=== PATIENT | male | born 1965 | race Caucasian/White ===

== ENCOUNTER 2021-07-10 18:55 | Emergency (ER) | payer OTHER ==
[~2021-07-10] VITALS: Ht 177.8 cm; Wt 81.2 kg
[2021-07-10 19:16] VITALS: BP 162/80
[2021-07-10] MEDS ORDERED: TDAP [DIPH/PERTUSSIS/TET] 0.5 ML VIAL IM ONE (19:22)
[2021-07-10] MEDS: TDAP [DIPH/PERTUSSIS/TET] 0.5 ML VIAL IM ONE (19:26)
[2021-07-10] MEDS ORDERED: LIDOCAINE 1%-EPI 1:100,000 20 ML VIAL ONE (19:47)
[2021-07-10] MEDS ORDERED: GELATIN SPONGE,ABSORBABLE 1 SPONGE SPONGE TP ONE (19:51)
[2021-07-10] MEDS ORDERED: LIDOCAINE 0.5%-EPI 1:200,000 50 ML VIAL TP ONE (20:00)
[2021-07-10] MEDS: LIDOCAINE 1%-EPI 1:100,000 20 ML VIAL TP ONE (20:00)
[2021-07-10] MEDS ORDERED: BACITRACIN ZINC OINT PACKET 1 EA PACKET TP ONE (20:01)
[2021-07-10] MEDS: BACITRACIN ZINC OINT PACKET 1 EA PACKET TP ONE (20:01)
[2021-07-10] MEDS ORDERED: IBUP-1955 PO (20:14)
== END 2021-07-10 20:19 | disposition home or self-care (01) ==
LOC: ER 18:59
DX: S61.302A Unspecified open wound of right middle finger with damage to nail, initial encounter (principal); I10 Essential (primary) hypertension; F41.9 Anxiety disorder, unspecified; W26.8XXA Contact with other sharp object(s), not elsewhere classified, initial encounter; Y93.89 Activity, other specified; Y92.89 Other specified places as the place of occurrence of the external cause; Y99.8 Other external cause status
CPT/HCPCS: 64450; 90471; 90715; 99284; J3490

== ENCOUNTER 2023-03-04 09:00 | Emergency (ER) | payer BC, OTHER ==
[~2023-03-04] VITALS: Ht 177.8 cm; Wt 83.9 kg
[~2023-03-04 09:00] MED LIST: IBUP-1955 PO
[2023-03-04] MEDS ORDERED: NAPR-1009 PO ×2 (09:24→09:38)
[2023-03-04] MEDS ORDERED: ALPR0.25 PO (09:38)
[2023-03-04 09:47] VITALS: BP 164/96; TEMP 98.1; O2SAT 98
== END 2023-03-04 09:47 | disposition home or self-care (01) ==
LOC: ER 09:05
DX: S29.012A Strain of muscle and tendon of back wall of thorax, initial encounter (principal); I10 Essential (primary) hypertension; F41.9 Anxiety disorder, unspecified; Z98.890 Other specified postprocedural states; Z79.899 Other long term (current) drug therapy; W17.89XA Other fall from one level to another, initial encounter; Y93.89 Activity, other specified; Y92.34 Swimming pool (public) as the place of occurrence of the external cause; Y99.8 Other external cause status
CPT/HCPCS: 71045-TC

== ENCOUNTER 2024-01-05 07:18 | Inpatient (IN) | payer BC, OTHER ==
[~2024-01-05] VITALS: Ht 177.8 cm; Wt 82.6 kg
[~2024-01-05 07:18] MED LIST changes: +ALPR0.25 PO; +NAPR-1009 PO
[2024-01-05] MEDS ORDERED: ASPIRIN 81 MG TAB.CHEW ONE (08:04)
[2024-01-05] MEDS: ASPIRIN 81 MG TAB.CHEW PO ONE (08:05)
[2024-01-05 08:38] LABS: BASOPHILS % (AUTO) 0.3 % (0.0-2.0); EOSINOPHILS # (AUTO) 0.1 K/uL (0.0-0.7); EOSINOPHILS % (AUTO) 1.3 % (0.0-6.0); HEMATOCRIT 40 % (39-51); LYMPHOCYTES % (AUTO) 17.2 % (20.0-44.0); MEAN CORPUSCULAR HEMOGLOBIN 31 PG (26.0-33.0); MEAN CORPUSCULAR HGB CONC 35 g/dl (31.0-36.0); MEAN CORPUSCULAR VOLUME 87 fL (80-96); MONOCYTES # (AUTO) 0.4 K/uL (0.1-1.30); MONOCYTES % (AUTO) 7.9 % (2.0-12.0); NEUTROPHILS # (AUTO) 4.1 K/uL (1.8-8.9); NEUTROPHILS % (AUTO) 73.3 % (43.0-81.0); PLATELET COUNT (AUTO) 195 K/uL (150-450); RED BLOOD CELL COUNT(AUTO) 4.54 MIL/uL (4.5-6.0); RED CELL DISTRIBUTION WIDTH 12.1 % (11.5-15.0); WHITE BLOOD COUNT (AUTO) 5.5 K/uL (4.3-11.0)
[2024-01-05 08:49] LABS: CALCIUM, SERUM 8.5 mg/dL (8.5-10.1); CARBON DIOXIDE 29 mmol/L (21-32); CHLORIDE 102 mmol/L (98-107); GLUCOSE 104 mg/dL (74-106); POTASSIUM 3.8 mmol/L (3.5-5.1); SODIUM SERUM 138 mmol/L (136-145); UREA NITROGEN, BLOOD 20 mg/dL (7-18)
[2024-01-05] MEDS ORDERED: NITROGLYCERIN PACKET 1 GM PACKET ONE (10:08)
[2024-01-05] MEDS: NITROGLYCERIN PACKET 1 GM PACKET TD ONE (10:13)
[2024-01-05] MEDS ORDERED: FLUT16SP16 NS (10:22)
[2024-01-05] MEDS ORDERED: AMLO-213 PO (10:22)
[2024-01-05] MEDS ORDERED: LISI-768 PO (10:22)
[2024-01-05] MEDS ORDERED: ACET-637 PO (10:22)
[2024-01-05] MEDS ORDERED: ROSU5TAB PO (10:22)
[2024-01-05] MEDS ORDERED: BUPR75TA8 PO (10:22)
[2024-01-05] MEDS ORDERED: METO-357 PO (10:22)
[2024-01-05] MEDS ORDERED: Z GUARD REMEDY 4 OZ OINT TP PRN (12:30)
[2024-01-05] MEDS ORDERED: ONDANSETRON HCL/PF 4 MG/2 ML VIAL IVP PRN (12:30)
[2024-01-05] MEDS ORDERED: ALPRAZOLAM 0.25 MG TABLET PO PRN (12:30)
[2024-01-05] MEDS ORDERED: MAGNESIUM HYDROXIDE 30 ML UDC PO PRN (12:30)
[2024-01-05] MEDS ORDERED: NITROGLYCERIN 0.4 MG/TAB BOTTLE SL PRN (12:30)
[2024-01-05] MEDS ORDERED: MAG HYDROX/AL HYDROX/SIMETH 30 ML UDC PO PRN (12:30)
[2024-01-05] MEDS ORDERED: ZOLPIDEM TARTRATE 5 MG TABLET PO PRN (12:30)
[2024-01-05] MEDS: HYDROCODONE/APAP 5/325MG TABLET PO PRN (14:15)
[2024-01-05] MEDS: ASPIRIN 81 MG TAB.CHEW PO SCH (15:18)
[2024-01-05 16:00] VITALS: BP 141/89; TEMP 97.5; O2SAT 96
[2024-01-05] MEDS: ACETAMINOPHEN 325 MG TABLET PO PRN (16:46)
[2024-01-05] MEDS: LISINOPRIL (5MG) 5 MG TABLET PO SCH (18:09)
[2024-01-05] MEDS: buPROPion 75 MG TABLET PO SCH (18:09)
[2024-01-05] MEDS: METOPROLOL SUCCINATE 50 MG TAB.SR.24H PO SCH (18:10)
[2024-01-05] MEDS: AMLODIPINE BESYLATE 10 MG TABLET PO SCH (18:11)
[2024-01-05 18:23] LABS: MAGNESIUM 2.3 mg/dL (1.8-2.4)
[2024-01-05 20:00] VITALS: BP 132/83; TEMP 98.1; O2SAT 96
[2024-01-05 20:38] VITALS: BP 132/83; TEMP 98.1; O2SAT 96
[2024-01-06] VITALS (7 sets, daily range): BP systolic 130–154; BP diastolic 83–95; TEMP 97.7–98.2; O2SAT 96–98
[2024-01-06 07:25] LABS: BASOPHILS % (AUTO) 0.3 % (0.0-2.0); EOSINOPHILS # (AUTO) 0.1 K/uL (0.0-0.7); EOSINOPHILS % (AUTO) 1.3 % (0.0-6.0); HEMATOCRIT 40 % (39-51); LYMPHOCYTES # (AUTO) 1.6 K/uL (0.8-4.8); LYMPHOCYTES % (AUTO) 18.1 % (20.0-44.0); MEAN CORPUSCULAR HEMOGLOBIN 31 PG (26.0-33.0); MEAN CORPUSCULAR HGB CONC 35 g/dl (31.0-36.0); MEAN CORPUSCULAR VOLUME 88 fL (80-96); MONOCYTES # (AUTO) 0.7 K/uL (0.1-1.30); MONOCYTES % (AUTO) 8.4 % (2.0-12.0); NEUTROPHILS # (AUTO) 6.3 K/uL (1.8-8.9); NEUTROPHILS % (AUTO) 71.9 % (43.0-81.0); PLATELET COUNT (AUTO) 198 K/uL (150-450); RED BLOOD CELL COUNT(AUTO) 4.53 MIL/uL (4.5-6.0); RED CELL DISTRIBUTION WIDTH 12.2 % (11.5-15.0); WHITE BLOOD COUNT (AUTO) 8.7 K/uL (4.3-11.0)
[2024-01-06 07:45] LABS: CALCIUM, SERUM 8.9 mg/dL (8.5-10.1); CREATININE 1.1 mg/dL (0.6-1.3); MAGNESIUM 2.4 mg/dL (1.8-2.4); PHOSPHORUS 3.4 mg/dL (2.5-4.9); POTASSIUM 3.9 mmol/L (3.5-5.1)
[2024-01-06] MEDS ORDERED: HYDROCODONE BIT/HOMATROPINE 5 ML UDC PO PRN (08:00)
[2024-01-06 08:01] LABS: THYROID STIMULATING HORMONE 1.326 uIU/mL (0.358-3.74)
[2024-01-06] MEDS: PANTOPRAZOLE 40 MG TABLET.DR PO SCH (08:14)
[2024-01-06] MEDS: ATORVASTATIN 10 MG TABLET PO SCH (08:16)
[2024-01-06] MEDS: FLUTICASONE PROPIONATE 16 GM BOTTLE NS SCH (08:25)
[2024-01-06] MEDS ORDERED: GUAIFENESIN 300 MG/15 ML UDC PO PRN (09:00)
[2024-01-06] MEDS ORDERED: ALPRAZOLAM 0.5 MG TABLET PO PRN (10:00)
[2024-01-06] MEDS ORDERED: ALPR0.5T PO (18:53)
[2024-01-06] MEDS ORDERED: HYDR-3972 PO (18:53)
[2024-01-06] MEDS ORDERED: ONDA4TAB5 PO (18:53)
== END 2024-01-06 19:00 | disposition home or self-care (01) | DRG 206 ==
LOC: ER 07:18 → TELE1 11:23
PROVIDERS: ADMIT Nurse Practitioner Acute Care; ATTEND Nurse Practitioner Acute Care
DX: M94.0 Chondrocostal junction syndrome [Tietze] (principal); E78.5 Hyperlipidemia, unspecified; F41.9 Anxiety disorder, unspecified; I10 Essential (primary) hypertension; Z87.891 Personal history of nicotine dependence; R05.9 Cough, unspecified
CPT/HCPCS: 36415; 71045-TC; 75574; 80048-TC; 80061-TC; 83735-TC; 84100-TC; 84443-TC; 84484-TC; 85025-TC; 93307-TC; G0378